=== PATIENT | female | born 1985 | race Caucasian/White ===

== ENCOUNTER 2020-02-04 17:35 | Emergency (ER) | payer OTHER ==
--- NOTE | 2020-02-04 19:04 | EDM.PDOC ---
ED HPI GENERAL MEDICAL PROBLEM - General Stated Complaint: ASPHASIA Time Seen by Provider: 02/04/20 17:45 Source of Information: Reports: Patient, Other (friends) History Limitations: Reports: Altered Mental Status - History of Present Illness INITIAL COMMENTS - FREE TEXT/NARRATIVE: Patient presented to the ED from the clinic because of right sided weakness, aphasia, slurred speech which started at about 5 pm. She also c/o headache, nausea and vomiting. She texted her friend at about 4:30 pm that she is not feeling right and can't get up and walk because she is feeling weak. While in the clinic she fell on her right knee because she was feeling week. She apparently There is no fever,chills, cough and cold symptoms. - Related Data Allergies Allergy/AdvReac Type Severity Reaction Status Date / Time No Known Allergies Allergy Verified 02/04/20 18:31 Home Meds: Home Meds Dextroamphetamine/Amphetamine [Adderall 20 mg Tablet] 25 mg PO BID 02/04/20 [History] Escitalopram Oxalate [Lexapro] 20 mg PO DAILY 02/04/20 [History] ED ROS GENERAL - Review of Systems Review Of Systems: See Below Constitutional: Reports: No Symptoms HEENT: Reports: No Symptoms Respiratory: Reports: No Symptoms Cardiovascular: Reports: No Symptoms Endocrine: Reports: No Symptoms GI/Abdominal: Reports: No Symptoms : Reports: No Symptoms Musculoskeletal: Reports: No Symptoms Skin: Reports: No Symptoms Neurological: Reports: Confusion, Headache Hematologic/Lymphatic: Reports: No Symptoms Immunologic: Reports: No Symptoms ED EXAM, NEURO - Physical Exam Exam: See Below Exam Limited By: No Limitations General Appearance: Alert, No Apparent Distress Eye Exam: Bilateral Eye: PERRL Ears: Normal External Exam, Normal Canal, Hearing Grossly Normal Nose: Normal Inspection, Normal Mucosa Throat/Mouth: Normal Inspection, Normal Lips, Normal Teeth Head Exam: Atraumatic, Normocephalic, Facial Swelling Neck: Normal Inspection, Supple, Non-Tender Respiratory/Chest: No Respiratory Distress, Lungs Clear Cardiovascular: Normal Peripheral Pulses, Regular Rate, Rhythm, No Edema GI/Abdominal: Normal Bowel Sounds, Soft, Non-Tender, No Organomegaly (Female) Exam: Normal External Exam, Normal Speculum Exam Neurological: CN II-XII Intact, Ataxia. No: Normal Gait Extremities: Normal Inspection, Normal Range of Motion, Non-Tender, No Pedal Edema Psychiatric: Normal Affect, Normal Mood Course - Vital Signs Text/Narrative:: Labs/EKG/Head CT was discussed with patient and her boyfriend Neuro consult with Dr Rodriguez who agreed for patient to be trasferred to [facility] for further care - Orders/Labs/Meds Orders: Active Orders 24 hr Category Date Time Status EKG Documentation Completion [RC] ASDIRECTED Care 02/04/20 18:02 Active Chest 1V Frontal [CR] Stat Exams 02/04/20 18:01 Taken Head wo Cont [CT] Stat Exams 02/04/20 17:48 Taken DRUG SCREEN, URINE ALERE [URCHEM] Stat Lab 02/04/20 18:47 Received EKG 12 Lead [EK] Routine Ther 02/04/20 18:01 Ordered Labs: Laboratory Tests 02/04/20 02/04/20 02/04/20 Range/Units 18:18 18:18 18:18 WBC 8.0 (4.5-12.0) X10-3/uL RBC 4.84 (3.23-5.20) x10(6)uL Hgb 13.4 (11.5-15.5) g/dL Hct 42.1 (30.0-51.3) % MCV 87.0 (80-96) fL MCH 27.7 (27.7-33.6) pg MCHC 31.9 L (32.2-35.4) g/dL RDW 13.8 (11.5-15.5) % Plt Count 353 (125-369) X10(3)uL MPV 8.7 (7.4-10.4) fL Neut % (Auto) 65.2 (46-82) % Lymph % (Auto) 29.7 (13-37) % [place] % (Auto) 4.1 (4-12) % Eos % (Auto) 1 (1.0-5.0) % Baso % (Auto) 0 (0-2) % Neut # (Auto) 5.3 (1.6-8.3) # Lymph # (Auto) 2.4 (0.6-5.0) # [place] # (Auto) 0.3 (0.0-1.3) # Eos # (Auto) 0.0 (0.0-0.8) # Baso # (Auto) 0.0 (0.0-0.2) # PT 10.3 (9.0-11.1) sec INR 0.95 L (1.00-1.24) APTT 24.0 L (24.4-33.2) SECONDS Sodium 140 (135-145) mmol/L Potassium 3.1 L (3.5-5.3) mmol/L Chloride 101 (100-110) mmol/L Carbon Dioxide 27 (21-32) mmol/L BUN 9 (7-18) mg/dL Creatinine 0.7 (0.55-1.02) mg/dL Est Cr Clr Drug Dosing TNP Estimated GFR (MDRD) > 60 (>60) BUN/Creatinine Ratio 12.9 (9-20) Glucose 94 (80-116) mg/dL Calcium 9.1 (8.6-10.2) mg/dL Total Bilirubin 0.2 (0.1-1.3) mg/dL AST 11 (5-25) IU/L ALT 18 (12-36) U/L Alkaline Phosphatase 76 (56-112) IU/L Troponin I (4.0-60.3) pg/mL Total Protein 7.3 (6.0-8.0) g/dL Albumin 3.8 (3.5-5.2) g/dL Globulin 3.5 g/dL Albumin/Globulin Ratio 1.1 Ethyl Alcohol (<0.03) % 02/04/20 Range/Units 18:18 WBC (4.5-12.0) X10-3/uL RBC (3.23-5.20) x10(6)uL Hgb (11.5-15.5) g/dL Hct (30.0-51.3) % MCV (80-96) fL MCH (27.7-33.6) pg MCHC (32.2-35.4) g/dL RDW (11.5-15.5) % Plt Count (125-369) X10(3)uL MPV (7.4-10.4) fL Neut % (Auto) (46-82) % Lymph % (Auto) (13-37) % [place] % (Auto) (4-12) % Eos % (Auto) (1.0-5.0) % Baso % (Auto) (0-2) % Neut # (Auto) (1.6-8.3) # Lymph # (Auto) (0.6-5.0) # [place] # (Auto) (0.0-1.3) # Eos # (Auto) (0.0-0.8) # Baso # (Auto) (0.0-0.2) # PT (9.0-11.1) sec INR (1.00-1.24) APTT (24.4-33.2) SECONDS Sodium (135-145) mmol/L Potassium (3.5-5.3) mmol/L Chloride (100-110) mmol/L Carbon Dioxide (21-32) mmol/L BUN (7-18) mg/dL Creatinine (0.55-1.02) mg/dL Est Cr Clr Drug Dosing Estimated GFR (MDRD) (>60) BUN/Creatinine Ratio (9-20) Glucose (80-116) mg/dL Calcium (8.6-10.2) mg/dL Total Bilirubin (0.1-1.3) mg/dL AST (5-25) IU/L ALT (12-36) U/L Alkaline Phosphatase (56-112) IU/L Troponin I 4.9 (4.0-60.3) pg/mL Total Protein (6.0-8.0) g/dL Albumin (3.5-5.2) g/dL Globulin g/dL Albumin/Globulin Ratio Ethyl Alcohol < 0.03 (<0.03) % Departure - Departure Time of Disposition: 19:40 Disposition: DC/Tfer to Acute Hospital 02 Condition: Good Clinical Impression: Aphasia, Hemiparesis - Discharge Information Referrals: PCP,None [Primary Care Provider] - - My Orders Last 24 Hours: My Active Orders 02/04/20 17:48 Head wo Cont [CT] Stat 02/04/20 18:01 Chest 1V Frontal [CR] Stat EKG 12 Lead [EK] Routine 02/04/20 18:02 EKG Documentation Completion [RC] ASDIRECTED 02/04/20 18:47 DRUG SCREEN, URINE ALERE [URCHEM] Stat - Assessment/Plan Last 24 Hours: My Active Orders 02/04/20 17:48 Head wo Cont [CT] Stat 02/04/20 18:01 Chest 1V Frontal [CR] Stat EKG 12 Lead [EK] Routine 02/04/20 18:02 EKG Documentation Completion [RC] ASDIRECTED 02/04/20 18:47 DRUG SCREEN, URINE ALERE [URCHEM] Stat
== END 2020-02-04 21:09 ==
LOC: FB.ED 17:35
DX: G81.91 Hemiplegia, unspecified affecting right dominant side (principal); R47.01 Aphasia
CPT/HCPCS: 36415; 70450; 71045; 80053; 80305-QW; 80307; 84484; 85025; 85610; 85730; 93005; 99285-25